=== PATIENT | female | born 1965 | race Caucasian/White ===

== ENCOUNTER 2018-12-10 20:44 | Outpatient (CLI) | payer OTHER ==
--- NOTE | 2018-12-10 23:30 | Ultrasound Report ---
Reason: EXCESSIVE MENSTRUATION Procedure Date: 12/10/2018 Accession Number: [id number] / [id number] Procedure: US - Pelvic w/Transvaginal CPT Code: FULL RESULT: EXAM: PELVIC ULTRASOUND EXAM DATE: 12/10/2018 10:12 PM. CLINICAL HISTORY: EXCESSIVE MENSTRUATION. COMPARISON: None. TECHNIQUE: Realtime transabdominal pelvic scan performed to identify the uterus and adnexa and as an overview of other pelvic structures, followed by transvaginal scan to provide greater detail of the uterus and adnexa, with static image documentation. FINDINGS: Uterus: 8.9 x 5.3 x 4.5 cm, volume 111 cc. Anteverted position. Normal overall size and echotexture. Masses: Within the anterior uterus there is probable intramuscular uterine fibroid measuring 2.2 x 2.7 x 2.0. The borders are difficult to define. In the left lateral aspect of the uterus there is a small intramuscular fibroid measuring 9 mm x 9 mm x 9 mm. Also on the left side of the uterus there is a small intramuscular uterine fibroid measuring 1.0x1.0x1.2 Endometrium: 8.0 mm. There is a small amount of fluid within the endometrial canal near the fundus. Cervix: Several nabothian cysts are noted in the region of the cervix. The largest measures 10 mm. Right Ovary: 1.9 x 1.6 x 1.2 cm, volume 1.9 cc. Normal echotexture and blood flow. There is a small cyst measuring 5 mm x 4 mm x 5 mm Left Ovary: Not visualized. There moderate amount of gas within the bowels. Free Fluid: None. Other: None. IMPRESSION: 1. Small amount of fluid within the endometrial canal. 2. Uterine fibroids as described. 3. Unremarkable right ovary. 4. Non-visualization of the left ovary. RADIA
== END 2018-12-10 20:45 | disposition home or self-care (01) ==
LOC: DI 20:44
PROVIDERS: ATTEND Nurse Practitioner Obstetrics & Gynecology
DX: D25.9 Leiomyoma of uterus, unspecified (principal)
CPT/HCPCS: 76830; 76856

== ENCOUNTER 2018-12-16 12:14 | Outpatient (CLI) | payer OTHER ==
[2018-12-16 19:06] LABS: BASOPHILS # (AUTO) 0.1 10^3/uL (0.0-0.1); BASOPHILS % (AUTO) 1.3 %; EOSINOPHILS # (AUTO) 0.3 10^3/uL (0.0-0.7); EOSINOPHILS % (AUTO) 2.8 %; HGB - HEMOGLOBIN 12.3 g/dL (12.0-16.0); LYMPHOCYTES # (AUTO) 2.8 10^3/uL (1.5-3.5); LYMPHOCYTES % (AUTO) 29.5 %; MEAN CORPUSCULAR HEMOGLOBIN 31.5 pg (27.0-31.0); MEAN CORPUSCULAR HGB CONC 33.5 g/dL (32.0-36.0); MEAN CORPUSCULAR VOLUME 94.1 fL (81.0-99.0); MEAN PLATELET VOLUME 8.2 fL (7.9-10.8); MONOCYTES # (AUTO) 0.6 10^3/uL (0.0-1.0); MONOCYTES % (AUTO) 6.5 %; NEUTROPHILS # (AUTO) 5.7 10^3/uL (1.5-6.6); NEUTROPHILS % (AUTO) 59.9 %; PLT - PLATELET COUNT 375 10^3/uL (130-450); RED BLOOD COUNT 3.92 10^6/uL (4.20-5.40); RED CELL DISTRIBUTION WIDTH 13.2 % (12.0-15.0); WHITE BLOOD COUNT 9.4 x10^3/uL (4.8-10.8)
[2018-12-16 19:23] LABS: ALBUMIN 3.9 g/dL (3.2-5.5); ALBUMIN/GLOBULIN RATIO 1.3 (1.0-2.2); ALKALINE PHOSPHATASE 53 IU/L (42-121); ALT ALANINE AMINOTRANSFERASE 24 IU/L (10-60); AST ASPARTATE AMINOTRANSFERASE 24 IU/L (10-42); BILIRUBIN,TOTAL 0.7 mg/dL (0.2-1.0); BUN - BLOOD UREA NITROGEN 12 mg/dL (6-20); CALCIUM 9.4 mg/dL (8.5-10.3); CARBON DIOXIDE - CO2 26 mmol/L (21-32); CHLORIDE 97 mmol/L (101-111); CHOL/HDL RATIO 5.4 (<4.4); CHOLESTEROL 194 mg/dL; CREATININE 0.7 mg/dL (0.4-1.0); GFR - MDRD 88 (>89); GLUCOSE 92 mg/dL (70-100); HDL CHOLESTEROL 36 mg/dL; LDL CHOLESTEROL,CALCULATED 93 mg/dL; LDL/HDL RATIO 2.6 (<4.4); SODIUM 134 mmol/L (135-145); VLDL CHOLESTEROL 65 mg/dL
== END 2018-12-16 12:15 | disposition home or self-care (01) ==
LOC: LAB.WCP 12:14
PROVIDERS: ATTEND Nurse Practitioner
DX: N92.5 Other specified irregular menstruation (principal); R73.01 Impaired fasting glucose; Z13.220 Encounter for screening for lipoid disorders; Z13.29 Encounter for screening for other suspected endocrine disorder
CPT/HCPCS: 36415; 80053; 80061; 83721; 84443; 85025

== ENCOUNTER 2018-12-17 16:10 | Outpatient (CLI) | payer OTHER ==
[2018-12-17 18:29] LABS: FREE T4 (FREE THYROXINE) 0.73 ng/dL (0.58-1.64)
[2018-12-17 18:54] LABS: FOLLICLE STIMULATING HORMONE 13.73 mIU/mL
== END 2018-12-17 16:11 | disposition home or self-care (01) ==
LOC: LAB 16:10
PROVIDERS: ATTEND Obstetrics & Gynecology
DX: N92.5 Other specified irregular menstruation (principal)
CPT/HCPCS: 36415; 83001; 84439

== ENCOUNTER 2019-01-14 15:19 | Outpatient (CLI) | payer OTHER ==
--- NOTE | 2019-01-15 10:00 | Mammography Report ---
Reason: SCREENING FOR MALHELIO KAUFMANP,BREAST Procedure Date: 01/14/2019 Accession Number: [id number] / [id number] Procedure: LISA - Screening Mammo w/Alphonse CPT Code: FULL RESULT: EXAM: Screening Mammo w/Alphonse DATE: 01/14/2019 4:11 PM CLINICAL HISTORY: Screening encounter. History of fibroadenoma removal from the left breast and history of right breast biopsy with result of fibroadenoma. TECHNIQUE: Bilateral CC and MLO views were obtained. COMPARISON: 11/08/2014 through 08/14/2010. FINDINGS: The breasts demonstrate heterogeneously dense fibroglandular parenchyma bilaterally. A biopsy clip is seen in the right breast. Postsurgical changes in the left breast are stable. No suspicious masses, clustered microcalcifications, or regions of architectural distortion are identified. IMPRESSION: Benign findings RECOMMENDATION: Routine annual screening unless otherwise clinically indicated. BIRADS CATEGORY 2: Benign findings STANDARD QUALIFYING STATEMENTS: 1. This examination was not reviewed with the aid of Computer-Aided Detection (CAD). 2. A negative or benign imaging report should not delay biopsy if clinically suspicious findings are present. Consider surgical consultation if warrented. More than 5% of cancers are not identified by imaging. 3. Dense breasts may obscure an underlying neoplasm. 4. This examination was reviewed with the aid of 3D breast imaging (tomosynthesis).
== END 2019-01-14 15:20 | disposition home or self-care (01) ==
LOC: DI 15:19
PROVIDERS: ATTEND Nurse Practitioner Obstetrics & Gynecology
DX: Z12.31 Encounter for screening mammogram for malignant neoplasm of breast (principal)
CPT/HCPCS: 77063; 77067

== ENCOUNTER 2019-01-27 10:39 | Day surgery (SDC) | payer OTHER ==
[2019-01-27] MEDS ORDERED: BUPIVACAINE 0.5%-EPI 1:200000 PF 30 ML VIAL ONE (11:01)
[2019-01-27] MEDS ORDERED: LACTATED RINGERS 1,000 ML IV ONE (11:14)
--- NOTE | 2019-01-27 11:27 | ANESTHESIA ---
Pre-Anesthesia VS, & Labs - Diagnosis Abnormal uterine bleeding - Procedure Hysteroscopy D&C Vital Signs: Temp Pulse Resp BP Pulse Ox 36.3 C L 75 18 132/74 H 96 01/27/19 10:50 01/27/19 10:50 01/27/19 10:50 01/27/19 10:50 01/27/19 10:50 Height 5 ft 3 in Weight (kg) 91 kg - NPO >8 hours - Is Patient ?: No Home Medications and Allergies Home Medications: Ambulatory Orders ALPRAZolam [Alprazolam] 0.5 mg PO BID PRN 01/19/19 ALPRAZolam [Alprazolam] 1 mg PO QPM PRN 01/19/19 Ascorbic Acid [Vitamin C] 1,000 mg PO DAILY 01/19/19 Diphenhydramine HCl [Allergy Medication] 25 mg PO TID PRN 01/19/19 Ferrous Sulfate 325 mg PO BID 01/19/19 Gabapentin 1,200 mg PO TID 01/19/19 Hydrocodone/Acetaminophen [Hydrocodon-Acetaminophen 5-325] 1 - 2 tab PO Q6HR PRN 01/19/19 Ibuprofen 600 mg PO TID PRN 01/19/19 Lysine [l-Lysine] 1 tab PO DAILY 01/19/19 Multivitamin [Daily Multiple Vitamin] 1 each PO DAILY 01/19/19 Nadolol 80 mg PO QPM 01/19/19 Pentosan Polysulfate Sodium [Elmiron] 100 mg PO TID 01/19/19 Tizanidine HCl 4 mg PO Q6HR PRN 01/19/19 Meclizine [Antivert] 12.5 mg PO TID 01/27/19 ALPRAZolam [Alprazolam] 0.5 mg PO BID PRN 01/19/19 ALPRAZolam [Alprazolam] 1 mg PO QPM PRN 01/19/19 Ascorbic Acid [Vitamin C] 1,000 mg PO DAILY 01/19/19 Diphenhydramine HCl [Allergy Medication] 25 mg PO TID PRN 01/19/19 Ferrous Sulfate 325 mg PO BID 01/19/19 Gabapentin 1,200 mg PO TID 01/19/19 Hydrocodone/Acetaminophen [Hydrocodon-Acetaminophen 5-325] 1 - 2 tab PO Q6HR PRN 01/19/19 Ibuprofen 600 mg PO TID PRN 01/19/19 Lysine [l-Lysine] 1 tab PO DAILY 01/19/19 Multivitamin [Daily Multiple Vitamin] 1 each PO DAILY 01/19/19 Nadolol 80 mg PO QPM 01/19/19 Pentosan Polysulfate Sodium [Elmiron] 100 mg PO TID 01/19/19 Tizanidine HCl 4 mg PO Q6HR PRN 01/19/19 Meclizine [Antivert] 12.5 mg PO TID 01/27/19 prilosec daily Allergies/Adverse Reactions: Allergies Allergy/AdvReac Type Severity Reaction Status Date / Time nickel AdvReac Rash Verified 01/27/19 10:57 oxymetazoline AdvReac Anxiety Verified 01/27/19 10:57 [From Afrin (oxymetazoline)] Anes History & Medical History - Anesthetic History Anesthesia Complications: reports: No previous complications - Medical History Cardiovascular: reports: Murmur (as a child, resolved in adulthood) Pulmonary: reports: Sleep apnea (does not use cpap) Gastrointestinal: reports: GERD (prilosec controls symptoms) Urinary: reports: None Neuro: reports: None Musculoskeletal: reports: Fibromyalgia Endocrine/Autoimmune: reports: None Blood Disorders: reports: None Skin: reports: None Smoking Status: Never smoker Psychosocial: reports: Depression, Anxiety, Other (Uses xanax daily) - Surgical History Eyes Ears Nose Throat (EENT): Cataracts, Tonsil/Adenoidectomy Gynecologic: Other (breast lumpectomy) Exam General: Alert, Oriented x3, Cooperative, Other (anxious) Dental: WNL Mouth Openin Fingerbreadth Neck Mobility: Normal Mallampati classification: III Thyromental Distance: 4-6 cm Respiratory: Lungs clear, Normal breath sounds, No respiratory distress, No accessory muscle use Cardiovascular: Regular rate, Normal S1, Normal S2, No murmurs Mental/Cognitive Status: Alert/Oriented X3, Normal for patient Plan Anesthesia Type: General, Other (xanax 0.5mg po given in preop.) Consent for Procedure(s) Verified and Reviewed: No Code Status: Attempt Resuscitation ASA classification: 3-Severe systemic disease Is this case an emergency?: No
[2019-01-27] MEDS ORDERED: ALPRAZolam 0.25 MG TABLET PO SCH (11:29)
[2019-01-27] MEDS ORDERED: ALPRAZolam 0.25 MG TABLET PO ONE (11:51)
[2019-01-27 12:02] LABS: HCG UR QUAL NEGATIVE
[2019-01-27] MEDS ORDERED: BUPIVACAINE 0.5%-EPI 1:200000 PF 30 ML VIAL SUBQ ONE (14:43)
[2019-01-27] MEDS ORDERED: PROPOFOL 200 MG/20 ML VIAL IVP ONE (14:45)
[2019-01-27] MEDS ORDERED: KETOROLAC 30 MG/ML VIAL IVP ONE (14:45)
[2019-01-27] MEDS ORDERED: fentaNYL 100 MCG/2 ML VIAL IVP ONE (14:45)
[2019-01-27] MEDS ORDERED: MIDAZOLAM 2 MG/2 ML VIAL IVP ONE (14:45)
[2019-01-27] MEDS ORDERED: ONDANSETRON 4 MG/2 ML VIAL IVP ONE (14:45)
[2019-01-27] MEDS ORDERED: DEXAMETHASONE 4 MG/ML VIAL IVP ONE (14:45)
[2019-01-27] MEDS ORDERED: SILVER NITRATE APPLICATOR TOP ONE ×2 (15:11→15:29)
[2019-01-27] MEDS ORDERED: oxyCODONE 5 MG TABLET PO PRN (15:28)
--- NOTE | 2019-01-27 15:28 | OPERATIVE REPORT ---
Operative Report - General Procedure Date: 01/27/19 Planned [place]: [facility] [place] Pre[place]Op Diagnosis: AUB Procedure Performed: [facility] [place] [facility] Post Op Diagnosis: AUB - Procedure Note Primary Surgeon: Vern Secondary Surgeon: n/a Anesthesia Technique: General LMA Pathology: endometrial currettings IV Fluids (mL): 800 Estimated Blood Loss (mL): 20 Urine Output (mL): 100 Findings: Normal uterine cavity Complications: none
[2019-01-27] MEDS ORDERED: ACETAMINOPHEN 1,000 MG/100 ML 100 ML IV ONE (15:30)
[2019-01-27] MEDS ORDERED: HYDROmorphone 0.5 MG/0.5 ML SYRINGE ONE (15:30)
[2019-01-27] MEDS ORDERED: LORazepam 2 MG/ML VIAL IVP PRN (15:30)
--- NOTE | 2019-01-27 15:31 | Discharge Plan ---
Discharge Plan Disposition: 01 Home, Self Care Diet: Regular Activity Restrictions: No driving or working for 24h Shower Restrictions: No Driving Restrictions: Yes (not for 24 hours) Additional Instructions or Follow Up instructions: Already scheduled for postop check with Vern Tinajero Smoking: If you smoke, Please STOP! Call for help. Follow-up with: Rosibel Porras MD [Provider Admit Priv/Credential] -
--- NOTE | 2019-01-27 16:07 | OPERATIVE REPORT ---
DATE OF SERVICE: 01/27/2019 Physician: Rosibel Porras MD PREOPERATIVE DIAGNOSIS: Abnormal uterine bleeding. POSTOPERATIVE DIAGNOSIS: Abnormal uterine bleeding. PROCEDURE PERFORMED: Hysteroscopy and dilation and curettage. SURGEON: Rosibel Porras MD [employer]ATE: None. ESTIMATED BLOOD LOSS: 20 mL. IV FLUIDS: 800 mL of crystalloid. URINE OUTPUT: 100 mL, clear. COUNTS: Correct x2. COMPLICATIONS: None apparent. DISPOSITION: Stable to recovery room. PROPHYLAXIS: SCDs to bilateral lower extremities. No antibiotics indicated. SPECIMENS: Endometrial curettings to Pathology. FINDINGS: Normal uterine cavity seen. Both tubal ostia were seen. No fibroids or polyps. DESCRIPTION OF PROCEDURE: The patient was brought to the operating room where she underwent general anesthesia. She was placed in low lithotomy in [facility]. A bimanual examination revealed a n axial uterus. She was prepped and draped in the usual sterile fashion. A speculum was placed and a single-tooth tenaculum was applied to the anterior lip of the cervix. Th e cervix was numbed using a paracervical block of 0.5% Marcaine with epinephrine, 6 mL on each side. The cervix was easily dilated to 7 mm. The MyoSure hysteroscope was inserted into the uterine cavit y. Crystalloid was used as a distention media. Normal anatomy was seen. The MyoSure light was then used to denude part of the endometrium. The MyoSure was removed and further denuding was done using a curette. The cervix had to be dilated to 8 mm in order to accommodate a curette. Good cry was fe lt throughout the uterine cavity. Inspection revealed an abrasion of the cervix at 7 o'clock, likely to putting in the curette with teeth. This was cauterized with silver nitrate and the bleeding stop ped. The tenaculum was removed and the patient was washed and then returned to the supine position p rior to waking. TD: 01/27/2019 15:45
[2019-01-27 16:19] VITALS: BP 136/75
== END 2019-01-27 10:40 | disposition home or self-care (01) ==
LOC: SDS 10:39
PROVIDERS: ATTEND Obstetrics & Gynecology
PROC: 0UDB8ZX Extraction of Endometrium, Via Natural or Artificial Opening Endoscopic, Diagnostic (ICD-10-PCS; principal; 2019-01-27 11:45)
DX: N93.9 Abnormal uterine and vaginal bleeding, unspecified (principal); N92.5 Other specified irregular menstruation; G47.30 Sleep apnea, unspecified; K21.9 Gastro-esophageal reflux disease without esophagitis; N30.10 Interstitial cystitis (chronic) without hematuria; K58.9 Irritable bowel syndrome, unspecified; M79.7 Fibromyalgia; E66.9 Obesity, unspecified; Z68.36 Body mass index [BMI] 36.0-36.9, adult; R42 Dizziness and giddiness; G43.909 Migraine, unspecified, not intractable, without status migrainosus; M54.5 Low back pain; G47.00 Insomnia, unspecified; F41.9 Anxiety disorder, unspecified; F32.9 Major depressive disorder, single episode, unspecified; F98.8 Other specified behavioral and emotional disorders with onset usually occurring in childhood and adolescence; Z79.891 Long term (current) use of opiate analgesic; Z79.1 Long term (current) use of non-steroidal anti-inflammatories (NSAID)
CPT/HCPCS: 58558; 81025; A9270; J0131; J1170; J2060; J7120

== ENCOUNTER 2019-09-21 08:00 | Outpatient (CLI) | payer OTHER ==
[2019-09-21 19:07] LABS: THYROID STIMULATING HORMONE 0.82 uIU/mL (0.34-5.60)
[2019-09-21 19:09] LABS: FREE T4 (FREE THYROXINE) 1.12 ng/dL (0.58-1.64)
== END 2019-09-21 23:59 | disposition home or self-care (01) ==
LOC: LAB.WCP 08:00
PROVIDERS: ATTEND Physician Assistant
DX: R94.6 Abnormal results of thyroid function studies (principal)
CPT/HCPCS: 36415; 84439; 84443; 84481

== ENCOUNTER 2019-09-28 07:00 | Outpatient (CLI) | payer OTHER | END 2019-09-28 23:59 | disposition home or self-care (01) | LOC: LAB.R 07:00 | PROVIDERS: ATTEND Family Medicine | DX: Z79.891 Long term (current) use of opiate analgesic (principal) | CPT/HCPCS: 80361; 80365; 81599 ==

== ENCOUNTER 2020-12-12 13:40 | Outpatient (CLI) | payer OTHER ==
--- NOTE | 2020-12-13 07:50 | Mammography Report ---
BILATERAL DIGITAL SCREENING MAMMOGRAM 3D/2D: 12/12/2020 CLINICAL: Family history of breast cancer. Routine screening. Comparison is made to exams dated: 02/14/2019 mammogram, 11/08/2014 mammogram, 04/06/2014 mammogram, ultrasound biopsy, 03/25/2014 ultrasound, and 03/25/2014 mammogram - [facility] . The tissue of both breasts is predominantly fatty. There is a stable benign focal asymmetry in the left breast. No significant masses, calcifications, or other findings are seen in either breast. There has been no significant interval change. IMPRESSION: BENIGN There is no mammographic evidence of malignancy. A 1 year screening mammogram is recommended. This exam was interpreted at Station ID: [id number]. NOTE: For mammograms, a report in lay terms will be sent to the patient. Approximately 15% of breast malignancies will not be visualized mammographically. In the management of a palpable breast mass, a negative mammogram must not discourage biopsy of a clinically suspicious lesion. Electronically Signed By: Delfin Rivas acr/penrad:12/12/2020 16:05:39 ACR BI-RADS Category 2: Benign Finding(s) 3342F PARENCHYMAL PATTERN: (F) - The breast(s) demonstrate(s) diffuse fatty replacement. BI-RADS CATEGORY: (2) - 2 RECOMMENDATION: (ANNUAL) - Recommend routine annual screening mammography. [id number] 1 year screening LATERALITY: (B)
== END 2020-12-12 13:41 | disposition home or self-care (01) ==
LOC: DI.N 13:40
DX: Z12.31 Encounter for screening mammogram for malignant neoplasm of breast (principal); Z80.3 Family history of malignant neoplasm of breast

== ENCOUNTER 2020-12-27 08:00 | Outpatient (CLI) | payer OTHER ==
[2020-12-27 18:22] LABS: BASOPHILS # (AUTO) 0.1 10^3/uL (0.0-0.1); BASOPHILS % (AUTO) 0.9 %; EOSINOPHILS # (AUTO) 0.4 10^3/uL (0.0-0.7); EOSINOPHILS % (AUTO) 3.3 %; HCT - HEMATOCRIT 46.2 % (37.0-47.0); HGB - HEMOGLOBIN 15.8 g/dL (12.0-16.0); LYMPHOCYTES # (AUTO) 2.6 10^3/uL (1.5-3.5); LYMPHOCYTES % (AUTO) 24.6 %; MEAN CORPUSCULAR HEMOGLOBIN 31.3 pg (27.0-31.0); MEAN CORPUSCULAR HGB CONC 34.2 g/dL (32.0-36.0); MEAN CORPUSCULAR VOLUME 91.7 fL (81.0-99.0); MEAN PLATELET VOLUME 10.3 fL (7.9-10.8); MONOCYTES # (AUTO) 0.8 10^3/uL (0.0-1.0); MONOCYTES % (AUTO) 7.3 %; NEUTROPHILS # (AUTO) 6.7 10^3/uL (1.5-6.6); NEUTROPHILS % (AUTO) 63.5 %; PLT - PLATELET COUNT 324 10^3/uL (130-450); RED BLOOD COUNT 5.04 10^6/uL (4.20-5.40); WHITE BLOOD COUNT 10.5 x10^3/uL (4.8-10.8)
[2020-12-27 18:56] LABS: ALBUMIN 4.2 g/dL (3.2-5.5); ALBUMIN/GLOBULIN RATIO 1.2 (1.0-2.2); BILIRUBIN,TOTAL 0.6 mg/dL (0.2-1.0); CALCIUM 9.5 mg/dL (8.5-10.3); CREATININE 0.8 mg/dL (0.4-1.0); TOTAL PROTEIN 7.6 g/dL (6.7-8.2)
== END 2020-12-27 23:59 | disposition home or self-care (01) ==
LOC: LAB.WCP 08:00
PROVIDERS: ATTEND Family Medicine
DX: K29.70 Gastritis, unspecified, without bleeding (principal)
CPT/HCPCS: 36415; 80053; 83690; 85025; 85651; 86140

== ENCOUNTER 2021-01-05 07:47 | Outpatient (CLI) | payer OTHER ==
--- NOTE | 2021-01-05 09:19 | Ultrasound Report ---
PROCEDURE: Abdomen Limited INDICATIONS: NAUSEA AND VOMITING TECHNIQUE: Real-time scanning was performed of the abdominal and retroperitoneal organs, with image documentatio n. COMPARISON: None. FINDINGS: Liver: Liver is normal in size and mildly increased in echotexture. Gallbladder: Gallbladder demonstrates no stones. Wall thickness is within normal limits measuring 0.9 mm. There is no pericholecystic fluid. Biliary ducts: Intrahepatic bile ducts are non-dilated. Extrahepatic bile duct caliber measures 5.6 mm. Normal is 6-7 mm or less in diameter, or 10 mm or less post-cholecystectomy. Pancreas: Visualized portions of the pancreas are sonographically normal. Kidneys: Kidneys are normal in size and echotexture. Right kidney measures unremarkable exam cm issac g; left kidney measures 1.6 cm long. No hydronephrosis or nephrolithiasis. No solid masses. IMPRESSION: Mild hepatic steatosis. Otherwise, unremarkable exam. Reviewed by: Monik Howard MD on 01/05/2021 9:18 AM PDT Approved by: Monik Howard MD on 01/05/2021 9:18 AM PDT Station ID: [id number]
== END 2021-01-05 07:48 | disposition home or self-care (01) ==
LOC: DI 07:47
PROVIDERS: ATTEND Physician Assistant Medical
DX: R11.2 Nausea with vomiting, unspecified (principal); K76.0 Fatty (change of) liver, not elsewhere classified

== ENCOUNTER 2021-01-23 12:27 | Outpatient (CLI) | payer OTHER ==
[2021-01-23] MEDS ORDERED: SINCALIDE IV ONE (13:20)
[2021-01-23] MEDS ORDERED: SODIUM CHLORIDE 0.9% IV ONE (13:20)
--- NOTE | 2021-01-23 15:26 | Nuclear Medicine Report ---
PROCEDURE: Hepatobiliary HIDA w/ Rx INDICATIONS: NAUSEA AND VOMITING RADIOPHARMACEUTICAL: 5.04 mCi Tc-99m Mebrofenin i.v. and 1.86 ?g sincalide i.v. TECHNIQUE: Following intravenous administration of Tc-99m Mebrofenin, sequential anterior abdominal images were obtained through 60 minutes. To evaluate the contractile response of the gallbladder in response to Cholecystokinin (CCK), 1.86 microgram sincalide (0.02 ?g/kg) was administered by slow int ravenous infusion approximately 60 minutes after the administration of the radiopharmaceutical. Sequ ential imaging was continued for 30 minutes after the start of CCK infusion. Gallbladder ejection fr action was calculated. COMPARISON: Gallbladder ultrasound 01/05/2021 FINDINGS: Biliary scan: There is normal tracer uptake and excretion by the liver. There is normal visualizati on of the intrahepatic ducts, common bile duct, and gallbladder. There is normal tracer transit into the duodenum. CCK stimulation: There is normal contractile response of the gallbladder to CCK infusion. The calcu lated gallbladder ejection fraction is 65%; normal values are above 35%. IMPRESSION: 1. Normal hepatobiliary imaging study. 2. Normal contractile response of gallbladder to CCK infusion.. Reviewed by: Pa Minaya MD on 01/23/2021 3:25 PM PDT Approved by: Pa Minaya MD on 01/23/2021 3:25 PM PDT Station ID: [id number]
== END 2021-01-23 12:28 | disposition home or self-care (01) ==
LOC: DI 12:27
PROVIDERS: ATTEND Physician Assistant Medical
DX: R11.2 Nausea with vomiting, unspecified (principal)
CPT/HCPCS: 78227; J7040

== ENCOUNTER 2021-03-21 08:00 | Outpatient (CLI) | payer OTHER ==
[2021-03-21 18:02] LABS: ALBUMIN 4.3 g/dL (3.2-5.5); ALBUMIN/GLOBULIN RATIO 1.4 (1.0-2.2); ALKALINE PHOSPHATASE 56 IU/L (42-121); ALT ALANINE AMINOTRANSFERASE 34 IU/L (10-60); AST ASPARTATE AMINOTRANSFERASE 25 IU/L (10-42); BILIRUBIN,TOTAL 0.7 mg/dL (0.2-1.0); BUN - BLOOD UREA NITROGEN 13 mg/dL (6-20); CALCIUM 9.3 mg/dL (8.5-10.3); CARBON DIOXIDE - CO2 28 mmol/L (21-32); CHLORIDE 101 mmol/L (101-111); CHOL/HDL RATIO 5.4 (<4.4); CHOLESTEROL 234 mg/dL; CREATININE 0.9 mg/dL (0.4-1.0); GFR - MDRD 65 (>89); GLUCOSE 105 mg/dL (70-100); HDL CHOLESTEROL 43 mg/dL; LDL CHOLESTEROL,CALCULATED 129 mg/dL; POTASSIUM 4.5 mmol/L (3.5-5.0); SODIUM 140 mmol/L (135-145); TOTAL PROTEIN 7.3 g/dL (6.7-8.2); TRIGLYCERIDES 311 mg/dL; VLDL CHOLESTEROL 62 mg/dL
[2021-03-21 18:18] LABS: THYROID STIMULATING HORMONE 0.6 uIU/mL (0.34-5.60)
== END 2021-03-21 23:59 | disposition home or self-care (01) ==
LOC: LAB.WCP 08:00
PROVIDERS: ATTEND Physician Assistant Medical
DX: E78.1 Pure hyperglyceridemia (principal); R73.01 Impaired fasting glucose
CPT/HCPCS: 36415; 80053; 80061; 83721; 84443

== ENCOUNTER 2021-04-10 15:24 | Outpatient (CLI) | payer OTHER ==
--- NOTE | 2021-04-10 16:40 | XRAY Report ---
PROCEDURE: Cervical Spine 4View INDICATIONS: ACUTE NECK PX TECHNIQUE: 4 view(s) of the cervical spine were acquired. COMPARISON: None. FINDINGS: Bones: No fractures or dislocations to the T1 level. The lateral masses of C1 appear intact on the odontoid view. No suspicious bony lesions. Moderate C5-C6 and C6-C7 degenerative disc disease. Soft tissues: No prevertebral soft tissue swelling. IMPRESSION: 1. Moderate C5-C6 and C6-7 C7 degenerative disc disease. 2. No fracture. No acute osseous lesion. If there is continued clinical concern for pathology, then M RI should be considered for further evaluation. Reviewed by: Jesusita Joseph MD, PhD on 04/10/2021 4:39 PM PDT Approved by: Jesusita Joseph MD, PhD on 04/10/2021 4:39 PM PDT Station ID: [id number]
== END 2021-04-10 15:25 | disposition home or self-care (01) ==
LOC: DI.N 15:24
PROVIDERS: ATTEND Physician Assistant Medical
DX: M50.322 Other cervical disc degeneration at C5-C6 level (principal)

== ENCOUNTER 2021-08-08 08:00 | Outpatient (CLI) | payer OTHER | END 2021-08-08 23:59 | disposition home or self-care (01) | LOC: LAB 08:00 | PROVIDERS: ATTEND Nurse Practitioner | DX: R05.3 Chronic cough (principal); Z20.822 Contact with and (suspected) exposure to COVID-19 ==

== ENCOUNTER 2021-12-19 14:05 | Outpatient (CLI) | payer OTHER ==
--- NOTE | 2021-12-19 15:06 | SLEEP CARE CONSULTATION ---
Information from patient questionnaire entered by Trevin Vallecillo MA. I have reviewed and concur with the information entered by Trevin Vallecillo MA. This document represents the service I personally performed and the decisions made by , Oliva Veronica ARNP. History of Present Illness Service Date and Time: 12/19/2021 1405 Reason for Visit: New patient, Previously diagnosed sleep apnea Chief Complaint: reports: Insomnia, Unrefreshed sleep, Snoring, Excessive daytime sleepiness, Observed pauses in breathing, Fatigue, Frequent awakenings at night, Other Date of Onset: 10 -15 years Usual bedtime: 9 pm, will read for awhile, goes to sleep 3-5 am Time it takes to fall asleep: 1-2 hours Snores at night: Yes Observed to quit breathing while asleep: Yes Sleeps alone due to snoring: No Number of times waking at night: 3-5 Reasons for waking at night: reports: Choking, Snoring, Gasping for air, Pain, Bathroom Toss, Turn, or Twitch while sleeping: Yes Recalls having dreams: Yes Usually gets out of bed at: 6-7 am to take pills, goes back to bed for 2-3 hours, sometimes more Feels refreshed in the morning: No Morning headache: Yes (almost every day since she had head injury about 6 months ago; prior occsnl) Sleepy or fatigued during the day: Yes Ever fallen asleep while driving: No Takes day naps: Yes Dreams during day naps: Yes Prior sleep studies: Yes (sometimes) Year and Where: 2006 [facility] Type of Sleep Study: Polysomnography Additional HPI information: SARAH BETH JUÁREZ was previously diagnosed to have mild, AHI 7.5, obstructive sleep apnea-hypopnea syndrome and comes in today for follow up. She is not currently on a CPAP machine. She continues to complain of excessive daytime sleepiness, fatigue, frequent night awakenings, insomnia, observed pauses in breathing, snoring, unrefreshed sleep, depression and anxiety. She was originally diagnosed with mild obstructive sleep apnea but was unable to tolerate the full face mask. She comes back hoping to try again. She states she sleeps in 3 hour blocks once she can fall asleep. She will lay down and read in bed for about 3 hours and then takes 2-3 hours to fall asleep. She states she does not wake up feeling rested and is always tired. - Parasomnia Symptoms Ever been unable to move upon waking from sleep: No Walks in sleep: No Talks in sleep: Yes Ever acted out dreams in sleep: Yes Ever felt weak in the knees when startled or emotional: No Bothered by creepy, crawly, restless sensations in legs: No Problems with memory or concentration: Yes (both) Subjective Initial [place] Sleepiness Scale score: 11 (2021) Past Medical History Past Medical History: reports: Fibromyalgia, Anxiety, Depression, Other (migraines, chronic back pain, heart murmur as child, IBS, vertigo, interstitial cystitis, eczema) Social History The patient's occupation is a SE. Patient is and lives in [place]. Have you smoked in the past 12 months: No Alcohol use: Yes Alcohol amount and frequency: 1-2 x yearly Caffeine use: Yes Caffeine amount and frequency: 1-3 x daily Family History Family history of sleep disordered breathing: No (adopted n/a) Allergies and Home Medications Known drug allergies: No Drug allergies reviewed: Yes (oxymetazoline, nickel) Home medication list reviewed: Yes Allergy and home medication list: Allergies nickel Adverse Reaction (Verified 01/27/19 10:57) Rash oxymetazoline [From Afrin (oxymetazoline)] Adverse Reaction (Verified 01/27/19 10:57) Anxiety Medications: Gabapentin 600 mg Tizanidine 4 mg Nadalol 80 mg Elmiron 100 mg Fluticasone Alprazolam 0.5 mg Doxepin 10 mg Escitalopram Oxelate 10 mg Omeprazole 40 mg OTC- L-lysine 1000 mg Buckley-3 Fish oil 1200 mg Ferrous Sulfate 28 mg Women DMV Super C 500 Complex 500mg Fiber capsules Review of Systems Weight gain over past 5 years: 25 Weight loss over past 5 years: 20 Cardiovascular: reports: have to sleep sitting up (sometimes) Respiratory: reports: sputum production Gastrointestinal: reports: nausea, abdominal pain, other (IBS) Urinary: reports: frequency, other (interstitial cystitis) Neurological: reports: headaches, gait or balance problems, other (Vertigo) Psychiatric: reports: anxiety, depression Ear/Nose/Throat: reports: nasal congestion, sinus problems, dry mouth/throat, tonsillectomy, wisdom teeth removed Musculoskeletal: reports: joint pain, neck pain, back pain, muscle pain or cramping Immunologic: reports: itching (eczema), allergies to food or environment (dust) Physical Exam Vital signs obtained and entered by: JOE SHORT Blood Pressure: 123/74 (right, pulse 84, resp 18,) Cuff size: wrist Heart Rate: 85 O2 Saturation: 94 (cloth mask) Height: 5 ft 3 in Weight: 225 lb Body Mass Index: 39.8 BMI Classification: Obese Heart: regular rate and rhythm Lungs: clear bilaterally Impression and Plan 1. Suspected Obstructive Sleep Apnea-Hypopnea Syndrome, as previously diagnosed and as suggested by a history of loud and irregular snoring, observed cessation of breath while asleep, morning headache, frequent awakening during the night, unrefreshed sleep, cognitive impairment, and excessive daytime sleepiness. I re commend proceeding to polysomnography to confirm the diagnosis and to assess severity. If the patient has significant sleep disordered breathing, a manual CPAP titration study will also be performed to find the optimal treatment pressure. I informed the patient of what the sleep studies involve and after some discussion, obtained agreement to proceed. The pathophysiology of obstructive sleep apnea-hypopnea syndrome was discussed with the patient and health risks of cardiovascular and cerebrovascular disease if not treated. Risks of drowsy driving discussed in detail and patient advised to avoid long distance driving and to tube puller at the first sign of drowsiness. Patient agreed to plan. * Schedule polysomnography +- manual CPAP titration study and return in 1-2 weeks after the study to discuss result and initiate therapy. * Avoid long distance driving or driving when feeling sleepy. * Avoid alcohol, sedative and muscle relaxant around bedtime. * Attempt to lose weight. * Review instructions provided by trained office staff on how to prepare for the sleep study. * Return for follow-up after sleep study completed. Counseling Topics: Weight loss health impact Visit Type: In Office Time Spent with Patient (minutes): 35 Provider Statement: I spent 100% of the Face to Face Visit with the patient with greater than 50% spent counseling the patient and coordination of care.
[2021-12-19 15:07] VITALS: BP 123/74
== END 2021-12-19 14:06 | disposition home or self-care (01) ==
LOC: SC 14:05
PROVIDERS: ATTEND Nurse Practitioner Family
DX: G47.33 Obstructive sleep apnea (adult) (pediatric) (principal); G47.10 Hypersomnia, unspecified; R53.83 Other fatigue; G47.8 Other sleep disorders; G47.00 Insomnia, unspecified; R06.83 Snoring; F32.A Depression, unspecified
CPT/HCPCS: 99203; 99212

== ENCOUNTER 2022-01-04 14:07 | Outpatient (CLI) | payer OTHER | END 2022-01-04 14:08 | disposition home or self-care (01) | LOC: SC 14:07 | PROVIDERS: ATTEND Nurse Practitioner Family | DX: G47.33 Obstructive sleep apnea (adult) (pediatric) (principal); R09.02 Hypoxemia | CPT/HCPCS: 95806 ==

== ENCOUNTER 2022-01-22 15:23 | Outpatient (CLI) | payer OTHER ==
[2022-01-22 15:55] VITALS: BP 138/91
--- NOTE | 2022-01-22 15:55 | SLEEP CARE CONSULTATION ---
Information from patient questionnaire entered by Trevin Vallecillo MA. I have reviewed and concur with the information entered by Trevin Vallecillo MA. This document represents the service I personally performed and the decisions made by , Oliva Veronica ARNP. History of Present Illness Service Date and Time: 01/22/2022 1523 Initial [place] Sleepiness Scale score: 11 (2021) Current [place] Sleepiness Scale score: 10 Additional HPI information: SARAH BETH JUÁREZ returns for follow up and results of the recently performed home sleep study. I explained the pathophysiology behind obstructive sleep apnea. We then spent quite a bit of time discussing different treatment options. For mild obstructive sleep apnea, surgery and oral appliance are alternatives to nasal CPAP therapy but in moderate or severe cases, nasal CPAP is the most effective and reliable treatment. I reviewed the impact of weight changes on sleep apnea and strongly recommended losing weight. After some discussion, the patient opted to go with the nasal CPAP therapy. Nasal autoCPAP set at 4-15 cmH20 will be ordered with rationale explained. A manual titration study will be ordered if unable to find optimal pressure with office adjustments. I explained how CPAP machine works and what to expect when using the machine. Using CPAP every night in order to get used to it was emphasized. Patient advised to put CPAP mask on before getting into bed so as not to fall asleep without CPAP. To assist acclimation to CPAP use, it could also be used for a short time during day while reading or watching TV. The patient was instructed to call the CPAP supplier to discuss any mechanical problem that may occur. If the mask given is uncomfortable or is difficult to keep on through the night even with adjustment, contact the CPAP supplier as many will replace with an other mask style if notified before 30 days. If snoring or perceives is not getting enough air or too much air from the machine, notify this office. AASM patient education PAP tips reviewed and given to patient. Patient does not drink alcohol. Patient was cautioned about risks of drowsy driving until sleepiness symptoms resolve. Patient denies drowsy driving. Sleep Study - Results Type of Sleep Study: Home sleep study (F/U HOME STUDY, 01/04/22 [facility],) Prior sleep studies: Yes (sometimes) Year and Where: 2006 [facility] Polysomnography/Home Sleep Study results: Physician Impression: The quality of the study is good. The length of the study is adequate (> 240 minutes). Please also see the tabulated and graphic data. 1. Obstructive Sleep Apnea-Hypopnea (ICD-10 G47.33), moderate, with an AHI of 16.2/hr and petra SaO2 of 72%. During the study, the patient had 32 apneas (32 obstructive, 0 central, 0 mixed) and 69 hypopneas. The longest episode lasted 70.5 seconds. The respiratory events occurred more frequently during non-supine sleep (supine AHI was 15.0 and non-supine, 26.22). 2. Hypoxemia (ICD-10 R09.02), moderate, with the lowest oxygen saturation of 72 % and 95.8 minutes with SaO2 under 90%. Baseline oxygen saturation was normal (Average oxygen saturation was 92%). Allergies and Home Medications Home medication list reviewed: Yes (starting - eye drops for left eye pressure) Allergy and home medication list: Allergies nickel Adverse Reaction (Verified 01/27/19 10:57) Rash oxymetazoline [From Afrin (oxymetazoline)] Adverse Reaction (Verified 01/27/19 10:57) Anxiety Review of Systems Review of systems same as previous: No (left eye pressure) Physical Exam Vital signs obtained and entered by: JOE SHORT Blood Pressure: 138/91 Cuff size: wrist Heart Rate: 76 O2 Saturation: 94 Height: 5 ft 3 in Weight: 231 lb Weight change since last visit: 6 lb gain Body Mass Index: 40.9 BMI Classification: Morbidly Obese Impression and Plan 1. Obstructive Sleep Apnea-Hypopnea Syndrome, moderate, with lowest oxygen saturation of 72%. Obviously this is the cause of the patients symptoms of unrefreshed sleep, and excessive daytime sleepiness. Positive pressure therapy could benefit fibromyalgia, anxiety and depression. As mentioned above, the patient will be started on nasal autoCPAP therapy with pressure set at 4-15 cmH2 O. Compliance guidelines also reviewed. A copy of compliance guidelines will be given for reference at check out. 2. Hypoxemia, moderate, with the lowest oxygen saturation of 72 % and 95.8 minutes with SaO2 under 90%. Her baseline oxygen saturation was normal with an average oxygen saturation of 92%. * Nasal auto CPAP therapy, pressure at 4-15 cm H2O. * Attempt to lose weight. * Avoid alcohol consumption near bedtime. * Avoid supine sleep until using CPAP. * The patient is again cautioned about driving until sleepiness completely resolves. * Return one month after CPAP obtained. I will assess response to therapy and compliance at that time. Counseling Topics: Weight loss health impact Visit Type: In Office Time Spent with Patient (minutes): 20 Provider Statement: I spent 100% of the Face to Face Visit with the patient with greater than 50% spent counseling the patient and coordination of care.
== END 2022-01-22 15:24 | disposition home or self-care (01) ==
LOC: SC 15:23
PROVIDERS: ATTEND Nurse Practitioner Family
DX: G47.33 Obstructive sleep apnea (adult) (pediatric) (principal); R09.02 Hypoxemia; E66.01 Morbid (severe) obesity due to excess calories; Z68.41 Body mass index [BMI] 40.0-44.9, adult
CPT/HCPCS: 99212; 99213

== ENCOUNTER 2022-04-16 13:21 | Outpatient (CLI) | payer BC ==
--- NOTE | 2022-04-16 14:19 | SLEEP CARE CONSULTATION ---
Information from patient questionnaire entered by Trevin Ambrocio MA. I have reviewed and concur with the information entered by Trevin Ambrocio MA. This document represents the service I personally performed and the decisions made by , Oliva Veronica ARNP. History of Present Illness Service Date and Time: 04/16/2022 1321 Previous diagnosis: Moderate, Obstructive Sleep Apnea-Hypopnea Syndrome AHI: 16.2 (in 2021) Reason for follow up: first compliance (MAGNUS ZARATE 03/11/2022, ) Equipment type: CPAP Equipment obtained from: Other ([facility]; got inital supplies, mask fitting) Mask style: Full face Backup mask available: Yes (other mask) Last cushion change: almost 2 weeks ago Prior sleep studies: Yes (sometimes) Year and Where: 2006 [facility] Type of Sleep Study: Home sleep study (F/U HOME STUDY, 01/04/22 [facility],) HPI additional information: SARAH BETH JUÁREZ was diagnosed to have moderate, AHI 16.2, obstructive sleep apnea- hypopnea syndrome and returned today for CPAP therapy first compliance follow- up. Sleep Study - Results Type of Sleep Study: Home sleep study (F/U HOME STUDY, 01/04/22 [facility],) Prior sleep studies: Yes (sometimes) Year and Where: 2006 [facility] CPAP Compliance Data - Data Reviewed with Patient Average duration of nightly device use: 8 hours 7 minutes Compliance rate %: 100 (03/16/2022-04/14/2022) Current pressure setting (cmH2O): 4-15 (median 6.5, avg 12.0, max 13.3) Average residual AHI: 3.9 Central apnea: .3 Obstructive apnea: 3.1 Hypopnea: .2 Average large leak: 1.6 Subjective Patient concerns: reports: mask discomfort (changed from nasal to full face but the headgear is not fitting right), air blowing in eyes, mask leak noise. denies: aerophagia, condensation in mask/hose, nasal congestion, dry mouth, nose, throat, epistaxis, other Observed to snore while using device: No Current pressure setting perceived as: comfortable On therapy, patient: reports: other (She does not feel a difference yet). denies: drowsiness while driving Initial [place] Sleepiness Scale score: 11 (2021) Current [place] Sleepiness Scale score: 10 Allergies and Home Medications Home medication list reviewed: Yes (Lyrica, started about 4 weeks ago) Allergy and home medication list: Allergies nickel Adverse Reaction (Verified 01/27/19 10:57) Rash oxymetazoline [From Afrin (oxymetazoline)] Adverse Reaction (Verified 01/27/19 10:57) Anxiety Review of Systems Review of systems same as previous: Yes (no changes) Physical Exam Vital signs obtained and entered by: Manan AMBROCIO CMA AANICA Blood Pressure: 133/81 (RESP 18, PULSE 82, LEFT) Cuff size: wrist Heart Rate: 83 O2 Saturation: 98 (CLOTH MASK) Height: 5 ft 3 in Weight: 228 lb 8 oz (CLOTHES) Weight change since last visit: 3 lb loss Body Mass Index: 40.4 BMI Classification: Morbidly Obese Impression and Plan 1. Obstructive Sleep Apnea-Hypopnea Syndrome, moderate, with excellent treatment compliance and good apnea control. On CPAP therapy, the patient has better sleep quality and is more rested overall. Patient has been having trouble with her mask fitting properly. Patient states she had to switch to a full face mask because of her allergies. She has a small nose and when her allergies are going she cannot breathe through it. The ResMed F 30 mask is just not fitting well on her head, but cushion seems to fit okay but the headgear keeps pulling down onto her face. I had Armaan, our head chemistry technologist, come in and fit her with a Respironics DreamWear full face mask. She found it comfortable and is willing to try this style. I sent mask and headgear home for her to use. She will order this mask if it works well for her. The patients pressure will be changed to autoCPAP 11-14 cmH20 to reflect pressures being used. Patient advised to contact me if pressure change is uncomfortable so that it can be adjusted. Goals for apnea control discussed. Patient's apnea severity and rationale for treatment to reduce apnea, improve sleep quality and reduce cardiovascular and cerebrovascular events was reviewed. I also reviewed the benefit of consistent device use of CPAP for fibromyalgia,depression and anxiety. 2. Obesity, unspecified. Patient has lost weight. Currently patients BMI is 40.4. Obesity increases the risk of apnea, CPAP pressure requirements and overall health risks especially cardiovascular and diabetes. Thus patient is advised to continue to try to lose weight. Weight loss can be done with reducing portion size, reducing refined foods and balancing content with vegetables, fruit and whole grain foods. In addition, patient encouraged to get regular exercise. The patient's CPAP pressure range should accommodate some weight loss. Symptoms to report for additional pressure adjustment discussed. * Change auto CPAP pressure to 11-14 cmH2O * Patient given sample Respironics full face mask set to use * Notify me if snoring with mask or feeling that the pressure is too much or too little * Attempt to lose weight * Call this office if any problems using CPAP * Return for follow up in 1-2 months, or sooner if concerns arise Mask provided: Yes Counseling Topics: Spare mask, Weight loss health impact Visit Type: In Office Time Spent with Patient (minutes): 27 Provider Statement: I spent 100% of the Face to Face Visit with the patient with greater than 50% spent counseling the patient and coordination of care.
[2022-04-16 14:20] VITALS: BP 133/81
== END 2022-04-16 13:22 | disposition home or self-care (01) ==
LOC: SC 13:21
PROVIDERS: ATTEND Nurse Practitioner Family
DX: G47.33 Obstructive sleep apnea (adult) (pediatric) (principal); E66.01 Morbid (severe) obesity due to excess calories; Z68.41 Body mass index [BMI] 40.0-44.9, adult
CPT/HCPCS: 99212; 99213

== ENCOUNTER 2022-05-09 14:30 | Outpatient (CLI) | payer BC ==
--- NOTE | 2022-05-10 09:45 | Mammography Report ---
BILATERAL DIGITAL SCREENING MAMMOGRAM 3D/2D: 05/09/2022 CLINICAL: Family history of breast cancer. Routine screening. Comparison is made to exams dated: 12/12/2020 mammogram, 02/14/2019 mammogram, 11/08/2014 mammogram, mammogram, 04/06/2014 ultrasound biopsy, and 03/25/2014 ultrasound - [facility]. The tissue of both breasts is heterogeneously dense. This may lower the sensitivity of mammograph y. There is a stable benign focal asymmetry in the left breast. No significant masses, calcifications, or other findings are seen in either breast. There has been no significant interval change. IMPRESSION: BENIGN There is no mammographic evidence of malignancy. A 1 year screening mammogram is recommended. Based on Tyrer-Cuzick model (a risk assessment model), the patient's lifetime risk is 29.1% and her 1 0 year risk is 10.1%. If a patient has an elevated risk, a more comprehensive evaluation should be co nsidered and/or a referral to a genetic counselor. The [place] [employer], [place] [employer], and NCCN Guidelines advise the consideration of Breast MRI as an adjunct to screening mammo graphy in patients whose "Lifetime risk to develop breast cancer" is 20% or higher. This exam was interpreted at Station ID: [id number]. NOTE: For mammograms, a report in lay terms will be sent to the patient. Approximately 15% of breast malignancies will not be visualized mammographically. In the management of a palpable breast mass, a negative mammogram must not discourage biopsy of a clinically suspicious lesion. Electronically Signed By: Martha [email or web address]/ester:05/09/2022 16:56:27 ACR BI-RADS Category 2: Benign Finding(s) 3342F PARENCHYMAL PATTERN: (D) - The breast(s) demonstrate(s) heterogeneously dense fibroglandular parkatiey abigail. BI-RADS CATEGORY: (2) - 2 RECOMMENDATION: (ANNUAL) - Recommend routine annual screening mammography. [id number] 1 year screening LATERALITY: (B)
== END 2022-05-09 14:31 | disposition home or self-care (01) ==
LOC: DI.N 14:30
DX: Z12.31 Encounter for screening mammogram for malignant neoplasm of breast (principal); Z80.3 Family history of malignant neoplasm of breast

== ENCOUNTER 2022-06-18 13:34 | Outpatient (CLI) | payer BC ==
[2022-06-18 14:07] VITALS: BP 120/77
--- NOTE | 2022-06-18 14:07 | SLEEP CARE CONSULTATION ---
Information from patient questionnaire entered by Trevin Ambrocio MA. I have reviewed and concur with the information entered by Trevin Ambrocio MA. This document represents the service I personally performed and the decisions made by , Oliva Veronica ARNP. History of Present Illness Service Date and Time: 06/18/2022 1334 Previous diagnosis: Moderate, Obstructive Sleep Apnea-Hypopnea Syndrome AHI: 16.2 Reason for follow up: other (2 month f/u, Resmed, decker 03/08/2022, pressure change?,) Equipment type: CPAP Equipment obtained from: Other ([facility]; getting supplies) Mask style: Full face Mask brand: Respironics (Dreamwear) Backup mask available: No (needs supplies) Prior sleep studies: Yes (sometimes) Year and Where: 2006 [facility] Type of Sleep Study: Home sleep study (F/U HOME STUDY, 01/04/22 [facility],) HPI additional information: SARAH BETH JUÁREZ was diagnosed to have moderate, AHI 16.2, obstructive sleep apnea- hypopnea syndrome and returned today for CPAP therapy two month follow-up. Sleep Study - Results Type of Sleep Study: Home sleep study (F/U HOME STUDY, 01/04/22 [facility],) Prior sleep studies: Yes (sometimes) Year and Where: 2006 [facility] CPAP Compliance Data - Data Reviewed with Patient Average duration of nightly device use: 5 HOURS 18 MINUTES Compliance rate %: 75 (59/60 days used) Current pressure setting (cmH2O): 11-14 Average residual AHI: 4.6 Central apnea: .9 Obstructive apnea: 3.1 Hypopnea: .4 Average large leak: .0 Subjective Missed days of use due to: reports: illness (anxiety), other (insomnia, not sleeping those nights; getting up for bathroom and not putting back on) Patient concerns: denies: aerophagia, mask discomfort, air blowing in eyes, mask leak noise, condensation in mask/hose, nasal congestion, dry mouth, nose, throat, epistaxis, other Observed to snore while using device: No Current pressure setting perceived as: comfortable On therapy, patient: reports: other (not feeling much difference at this time). denies: drowsiness while driving Initial [place] Sleepiness Scale score: 11 (2021) Current [place] Sleepiness Scale score: 7 Allergies and Home Medications Drug allergies reviewed: Yes (NKDA) Home medication list reviewed: Yes (generic Lyrica) Allergy and home medication list: Allergies nickel Adverse Reaction (Verified 01/27/19 10:57) Rash oxymetazoline [From Afrin (oxymetazoline)] Adverse Reaction (Verified 01/27/19 10:57) Anxiety Review of Systems Review of systems same as previous: Yes (no changes) Physical Exam Vital signs obtained and entered by: Manan AMBROCIO CMA AAMA, Blood Pressure: 120/77 (RR 18) Cuff size: wrist (right) Heart Rate: 77 O2 Saturation: 96 Height: 5 ft 3 in Weight: 232 lb Body Mass Index: 41.1 BMI Classification: Morbidly Obese Impression and Plan 1. Obstructive Sleep Apnea-Hypopnea Syndrome, moderate, with good treatment compliance and good apnea control. On CPAP therapy, the patient has better sleep quality and is more rested overall. Patient has not yet gotten any more supplies. I encouraged her to call her [employer] company to arrange further supplies. Patient likes the full face mask that she is using, DreamWear full face by [employer]. She states she has some trouble with having to get up several times a night and it is cumbersome to have to put the mask on and off through the night. She will sometimes fall asleep without putting it back on or choose not to put it back on. I encouraged her to unhook the tubing from the machine or the mask and leave her mask on to help reduce mask on and off through the night. She voiced understanding. Patient's apnea severity and rationale for treatment to reduce apnea, improve sleep quality and reduce cardiovascular and cerebrovascular events was reviewed. I also reviewed the benefit of consistent device use of CPAP for fibromyalgia, depression and anxiety. * Continue auto CPAP pressure at 11-14 cmH2O * Notify me if snoring with mask or feeling that the pressure is too much or too little * Attempt to lose weight * Call this office if any problems using CPAP * Return for follow up in 3 months, or sooner if concerns arise Counseling Topics: Spare mask, Weight loss health impact Visit Type: In Office Time Spent with Patient (minutes): 20 Provider Statement: I spent 100% of the Face to Face Visit with the patient with greater than 50% spent counseling the patient and coordination of care.
== END 2022-06-18 13:35 | disposition home or self-care (01) ==
LOC: SC 13:34
PROVIDERS: ATTEND Nurse Practitioner Family
DX: G47.33 Obstructive sleep apnea (adult) (pediatric) (principal); E66.01 Morbid (severe) obesity due to excess calories; Z68.41 Body mass index [BMI] 40.0-44.9, adult
CPT/HCPCS: 99212; 99213

== ENCOUNTER 2022-09-17 14:15 | Outpatient (CLI) | payer BC ==
[2022-09-17 14:20] VITALS: BP 140/90
--- NOTE | 2022-09-17 14:20 | SLEEP CARE CONSULTATION ---
Information from patient questionnaire entered by Phoenix Mujica. I have reviewed and concur with the information entered by Phoenix Mujica. This document represents the service I personally performed and the decisions made by me, Oliva Veronica ARNP. History of Present Illness Service Date and Time: 09/17/2022 1400 Previous diagnosis: Moderate, Obstructive Sleep Apnea-Hypopnea Syndrome AHI: 16.2 (in 2021) Reason for follow up: three month (F/U ) Equipment type: CPAP Equipment obtained from: Other ([facility]; tried to order but did not get mask) Mask style: Full face Mask brand: Respironics (Dreamwear) Backup mask available: Yes (old mask) Prior sleep studies: Yes (sometimes) Year and Where: 2006 [facility] Type of Sleep Study: Home sleep study (F/U HOME STUDY, 01/04/22 [facility],) HPI additional information: SARAH BETH JUÁREZ was diagnosed to have moderate, AHI 16.2, obstructive sleep apnea- hypopnea syndrome and returned today for CPAP therapy three month follow-up. Sleep Study - Results Type of Sleep Study: Home sleep study (F/U HOME STUDY, 01/04/22 [facility],) Prior sleep studies: Yes (sometimes) Year and Where: 2006 [facility] CPAP Compliance Data - Data Reviewed with Patient Average duration of nightly device use: 5 HRS 12 MIN Compliance rate %: 79 (06/17/22-09/14/22; 86/90 days used) Current pressure setting (cmH2O): 11-14 Average residual AHI: 3.3 Central apnea: 0.8 Obstructive apnea: 1.8 Subjective Missed days of use due to: reports: other (will fall asleep without mask; puts on as soon as finds it off) Patient concerns: reports: dry mouth, nose, throat (will come open when unable to breathe through nose; has allergies, using nasal steroid spray), other (mask pressure makes skin "burn"). denies: aerophagia, mask discomfort, air blowing in eyes, condensation in mask/hose, nasal congestion, epistaxis Observed to snore while using device: Yes (occasional) Current pressure setting perceived as: comfortable On therapy, patient: reports: sleeping better, awakening more refreshed, being more awake and alert during the day, more rested overall. denies: drowsiness while driving Initial [place] Sleepiness Scale score: 11 (2021) Current [place] Sleepiness Scale score: 6 (09/17/2022) Allergies and Home Medications Drug allergies reviewed: Yes (nickel, oxymetazoline) Home medication list reviewed: Yes (Pregalbalin, Duloxetine, Hydroxyzine) Review of Systems Review of systems same as previous: Yes (no changes) Physical Exam Vital signs obtained and entered by: PHOENIX Paris MA Blood Pressure: 140/90 (LEFT ARM) Cuff size: regular Heart Rate: 78 O2 Saturation: 94 Height: 5 ft 3 in Weight: 236 lb Weight change since last visit: 4 lb gain Body Mass Index: 41.8 BMI Classification: Morbidly Obese Impression and Plan 1. Obstructive Sleep Apnea-Hypopnea Syndrome, moderate, with good treatment compliance and good apnea control. On CPAP therapy, the patient has better sleep quality and is more rested overall. Patient has significant improvement of their sleep apnea and are satisfied with current CPAP therapy. To resolve snore, the CPAP pressure will be changed to 11-14 cmH20. Patient advised to contact this office if pressure change uncomfortable or if pressure change does not resolve snore. Patient has been having a burning sensation of her skin from the pressure of the mask on her face. I advised her to try a mask barrier to reduce skin irritation. She denies rash or redness of skin. Patient's apnea severity and rationale for treatment to reduce apnea, improve sleep quality and reduce cardiovascular and cerebrovascular events was reviewed. I also reviewed the benefit of consistent device use of CPAP for depression, anxiety and fibromyalgia. 2. Obesity, unspecified. Currently patients BMI is 41.8. Obesity increases the risk of apnea, CPAP pressure requirements and overall health risks especially cardiovascular and diabetes. Thus patient is advised to lose weight. * Change auto CPAP pressure to 12-14 cmH2O * Notify me if snoring with mask or feeling that the pressure is too much or too little * Attempt to lose weight * Call this office if any problems using CPAP * Return for follow up in 6 months, or sooner if concerns arise Counseling Topics: Spare mask, Weight loss health impact Visit Type: In Office Time Spent with Patient (minutes): 20 Provider Statement: I spent 100% of the Face to Face Visit with the patient with greater than 50% spent counseling the patient and coordination of care.
== END 2022-09-17 14:16 | disposition home or self-care (01) ==
LOC: SC 14:15
PROVIDERS: ATTEND Nurse Practitioner Family
DX: G47.33 Obstructive sleep apnea (adult) (pediatric) (principal); E66.01 Morbid (severe) obesity due to excess calories; Z68.41 Body mass index [BMI] 40.0-44.9, adult
CPT/HCPCS: 99212; 99213

== ENCOUNTER 2023-02-12 10:36 | Outpatient (CLI) | payer BC ==
--- NOTE | 2023-02-12 12:55 | XRAY Report ---
PROCEDURE: Ankle 3 View LT INDICATIONS: PAIN IN LEFT FOOT TECHNIQUE: 3 views of the ankle were acquired. COMPARISON: None. FINDINGS: Bones: No fractures or dislocations. Small ossicle or ossicles adjacent to the lateral malleolus. An kle mortise is normally aligned. No suspicious bony lesions. Soft tissues: No tibiotalar joint effusion. Achilles tendon appears normal. Small posterior calcane al enthesophyte. IMPRESSION: Small ossicle or ossicles adjacent to the lateral malleolus. This is likely sequelae of prior injury. Reviewed by: Igor Reeves MD on 02/12/2023 12:53 PM PDT Approved by: Igor Reeves MD on 02/12/2023 12:53 PM PDT Station ID: [id number]
--- NOTE | 2023-02-12 12:56 | XRAY Report ---
PROCEDURE: Foot 2 View LT INDICATIONS: PAIN IN LEFT FOOT TECHNIQUE: 2 views of the foot were acquired. COMPARISON: Same day left ankle radiographs. FINDINGS: Bones: No acute fractures or dislocations. Small ossicle adjacent to the lateral malleolus. No susp icious bony lesions. Soft tissues: No suspicious soft tissue calcifications or masses. IMPRESSION: No acute fracture. Reviewed by: Igor Reeves MD on 02/12/2023 12:55 PM PDT Approved by: Igor Reeves MD on 02/12/2023 12:55 PM PDT Station ID: [id number]
== END 2023-02-12 10:37 | disposition home or self-care (01) ==
LOC: DI 10:36
PROVIDERS: ATTEND Nurse Practitioner
DX: M79.672 Pain in left foot (principal)

== ENCOUNTER 2023-08-26 14:50 | Outpatient (CLI) | payer BC ==
--- NOTE | 2023-08-26 15:33 | Sleep Patient Instructions ---
Sleep Center Visit Summary - Patient Visit Information Reason for Visit: Annual Visit - Patient Instructions Additional Instructions: You will continue with CPAP therapy with pressure changed to 12-15 cmH2O. Please let me know if pressure change is uncomfortable for further adjustment. A supply prescription will be updated with your DME. We encourage you to continue to try to lose weight. Please follow up with the sleep care office in 1 year. - Clinic Information Contact: [facility] [address] [place] [address] [email or web address] T: [phone]
--- NOTE | 2023-08-26 15:39 | SLEEP CARE CONSULTATION ---
Information from patient questionnaire entered by Phoenix Mujica. I have reviewed and concur with the information entered by Phoenix Mujica. This document represents the service I personally performed and the decisions made by , Oliva Veronica ARNP. History of Present Illness Service Date and Time: 08/26/2023 1450 Previous diagnosis: Moderate, Obstructive Sleep Apnea-Hypopnea Syndrome AHI: 16.2 (in 2021) Reason for follow up: annual (LAST SEEN 08/2022) Equipment type: CPAP (ResMed Airsense 10, 02/2022) Equipment obtained from: Other ([facility]; getting supplies) Mask style: Full face Mask brand: Respironics (Dreamwear) Backup mask available: Yes Last cushion change: 2 months Prior sleep studies: Yes (sometimes) Year and Where: 2006 Merged With [facility] Type of Sleep Study: Home sleep study (F/U HOME STUDY, 01/04/22 [facility],) HPI additional information: SARAH BETH JUÁREZ was diagnosed to have moderate, AHI 16.2, obstructive sleep apnea- hypopnea syndrome and returned today for CPAP therapy annual follow-up. Sleep Study - Results Type of Sleep Study: Home sleep study (F/U HOME STUDY, 01/04/22 [facility],) Prior sleep studies: Yes (sometimes) Year and Where: 2006 Merged With [facility] CPAP Compliance Data - Data Reviewed with Patient Average duration of nightly device use: 5 HRS 5 MIN Compliance rate %: 72 (08/23/2022-08/20/23; 353/365 days used) Current pressure setting (cmH2O): 12-14 (avg 13.5, max 13.7) Average residual AHI: 3.7 Central apnea: 1.1 Obstructive apnea: 2.1 Average large leak: 0.3 Subjective Patient concerns: reports: mask discomfort (skin irritation), dry mouth, nose, t hroat (due to medications; not using humidifier). denies: aerophagia, air blowing in eyes, mask leak noise, condensation in mask/hose, nasal congestion, epistaxis Observed to snore while using device: No Current pressure setting perceived as: too low On therapy, patient: reports: sleeping better, awakening more refreshed, being more awake and alert during the day, more rested overall. denies: drowsiness while driving Initial [place] Sleepiness Scale score: 11 (2021) Current [place] Sleepiness Scale score: 7 (08/26/23) Allergies and Home Medications Known drug allergies: Yes (as listed) Drug allergies reviewed: Yes Home medication list reviewed: Yes (as listed) Allergy and home medication list: Allergies nickel Adverse Reaction (Verified 08/22/23 09:16) Rash oxymetazoline [From Afrin (oxymetazoline)] Adverse Reaction (Verified 08/22/23 09:16) Anxiety Home Medications Medication Instructions Recorded Confirmed Last Taken Type Ascorbic Acid [Vitamin C] 1,000 mg PO DAILY 01/19/19 08/26/23 01/27/19 History Ferrous Sulfate 325 mg PO BID 01/19/19 08/26/23 01/26/19 History Gabapentin 1,200 mg PO TID 01/19/19 08/26/23 01/26/19 History Hydrocodone/Acetaminophen 1 - 2 tab PO Q6HR PRN 01/19/19 08/26/23 01/26/19 History [Hydrocodon-Acetaminophen 5-325] Ibuprofen 600 mg PO TID PRN 01/19/19 08/26/23 01/26/19 History Lysine [l-Lysine] 1 tab PO DAILY 01/19/19 08/26/23 01/27/19 History Multivitamin [Daily Multiple 1 each PO DAILY 01/19/19 08/26/23 01/27/19 History Vitamin] Pentosan Polysulfate Sodium 100 mg PO TID 01/19/19 08/26/23 01/26/19 History [Elmiron] Tizanidine HCl 4 mg PO Q6HR PRN 01/19/19 08/26/23 01/26/19 History diphenhydrAMINE HCL [Allergy 25 mg PO TID PRN 01/19/19 08/26/23 01/26/19 History Medication] nadoloL [Nadolol] 80 mg PO QPM 01/19/19 08/26/23 01/26/19 History Meclizine [Antivert] 12.5 mg PO TID 01/27/19 08/26/23 01/27/19 History DULoxetine [Cymbalta] See Rx Instructions .ROUTE .COMPLEX 09/17/22 08/26/23 Unknown History Pregabalin [Lyrica] See Rx Instructions .ROUTE .COMPLEX 09/17/22 08/26/23 Unknown History hydrOXYzine HCL [Hydroxyzine HCl] See Rx Instructions .ROUTE .COMPLEX 09/17/22 08/26/23 Unknown History Celecoxib See Rx Instructions .ROUTE .COMPLEX 08/26/23 08/26/23 Unknown History Doxepin [SINEquan] See Rx Instructions .ROUTE .COMPLEX 08/26/23 08/26/23 Unknown History Rizatriptan Benzoate [Rizatriptan] See Rx Instructions .ROUTE .COMPLEX 08/26/23 08/26/23 Unknown History Review of Systems Review of systems same as previous: Yes (NO CHANGE) Physical Exam Vital signs obtained and entered by: PHOENIX Paris MA Blood Pressure: 151/85 (RIGHT ) Cuff size: wrist Heart Rate: 85 O2 Saturation: 96 Height: 5 ft 3 in Weight: 242 lb 12.8 oz Weight change since last visit: 6 lb gain Body Mass Index: 43.0 BMI Classification: Morbidly Obese Impression and Plan 1. Obstructive Sleep Apnea-Hypopnea Syndrome, moderate, with good treatment compliance and good apnea control. On CPAP therapy, the patient has better sleep quality and is more rested overall. She feels like the pressure is low at times and her average AHI is at 3.7. The patients pressure will be changed to autoCPAP 12-15 cmH20 for patient comfort and mild air hunger. Patient has significant improvement of their sleep apnea and is satisfied with current CPAP therapy. Patient denies problems with oral dryness, nasal congestion, epistaxis or aerophagia. Patient advised to contact me if pressure change is uncomfortable so that it can be adjusted. Goals for apnea control discussed. Patient's apnea severity and rationale for treatment to reduce apnea, improve sleep quality and reduce cardiovascular and cerebrovascular events was reviewed. I also reviewed the benefit of consistent device use of CPAP for depression, anxiety and fibromyalgia. 2. Obesity, unspecified. Currently patients BMI is 43. Obesity increases the risk of apnea, CPAP pressure requirements and overall health risks especially cardiovascular and diabetes. Thus patient is advised to lose weight. * Change auto CPAP pressure to 12-15 cmH2O * Update supply prescription * Notify me if snoring with mask or feeling that the pressure is too much or too little * Attempt to lose weight * Call this office if any problems using CPAP * Return for follow up in 1 year, or sooner if concerns arise Counseling Topics: Spare mask, Weight loss health impact Prescriptions: Device supplies Follow up with Sleep Care in: 1 year Visit Type: In Office Time Spent with Patient (minutes): 24 Provider Statement: I spent 100% of the Face to Face Visit with the patient with greater than 50% spent counseling the patient and coordination of care.
[2023-08-26 16:28] VITALS: BP 151/85; O2SAT 96
== END 2023-08-26 14:51 | disposition home or self-care (01) ==
LOC: SC 14:50
PROVIDERS: ATTEND Nurse Practitioner Family
DX: G47.33 Obstructive sleep apnea (adult) (pediatric) (principal); E66.01 Morbid (severe) obesity due to excess calories; Z68.43 Body mass index [BMI] 50.0-59.9, adult
CPT/HCPCS: 99212; 99213

== ENCOUNTER 2024-05-11 16:08 | Outpatient (CLI) | payer BC ==
--- NOTE | 2024-05-11 21:48 | XRAY Report ---
PROCEDURE: Cervical Spine 4-5V INDICATIONS: NECK PAIN TECHNIQUE: 4 views of the cervical spine acquired. COMPARISON: Cervical spine x-ray 04/10/2021 FINDINGS: Bones: No fractures or dislocations to the T1 level. Oblique images demonstrate no bony foraminal s tenoses. Degenerative changes remaining most prominent at C5-6 and C6-7 demonstrating degenerative d isc space narrowing as well as small anterior osteophytes. Multilevel uncovertebral arthropathy is pr esent. Soft tissues: No prevertebral soft tissue swelling. IMPRESSION: Degenerative changes relatively stable compared to prior exam. Reviewed by: Monik Howard MD on 05/11/2024 9:47 PM PDT Approved by: Monik Howard MD on 05/11/2024 9:47 PM PDT Station ID: [id number]
== END 2024-05-11 16:09 | disposition home or self-care (01) ==
LOC: DI 16:08
PROVIDERS: ATTEND Acupuncturist
DX: M47.812 Spondylosis without myelopathy or radiculopathy, cervical region (principal)